=== PATIENT | female | born 1950 | race Two or more races ===

== ENCOUNTER 2024-09-11 22:27 | Inpatient (IN) | payer OTHER ==
[~2024-09-11] VITALS: Ht 149.9 cm; Wt 65.8 kg
[2024-09-11 23:52] VITALS: BP 184/76; TEMP 98.4; O2SAT 95
[2024-09-12] MEDS ORDERED: Z GUARD REMEDY 4 OZ OINT TP PRN (00:30)
[2024-09-12] MEDS ORDERED: MAGNESIUM HYDROXIDE 30 ML UDC PO PRN (00:30)
[2024-09-12] MEDS ORDERED: ONDANSETRON HCL/PF 4 MG/2 ML VIAL IVP PRN (00:30)
[2024-09-12] MEDS ORDERED: MAG HYDROX/AL HYDROX/SIMETH 30 ML UDC PO PRN (00:30)
[2024-09-12] MEDS ORDERED: HYDROCODONE/APAP 5/325MG TABLET PO PRN (01:00)
[2024-09-12] MEDS: AMLODIPINE BESYLATE 5 MG TABLET PO SCH ×2 (01:30→16:09)
[2024-09-12 04:00] VITALS: BP 137/90; TEMP 98.1; O2SAT 95
[2024-09-12 06:52] LABS: BASOPHILS % (AUTO) 0.4 % (0.0-2.0); EOSINOPHILS % (AUTO) 0.2 % (0.0-6.0); HEMATOCRIT 33 % (33-45); HEMOGLOBIN 10.7 g/dL (11.5-14.8); LYMPHOCYTES # (AUTO) 1.2 K/uL (0.8-4.8); LYMPHOCYTES % (AUTO) 11.7 % (20.0-44.0); MEAN CORPUSCULAR HEMOGLOBIN 29 PG (26.0-33.0); MEAN CORPUSCULAR HGB CONC 33 g/dl (31.0-36.0); MEAN CORPUSCULAR VOLUME 90 fL (82-100); MONOCYTES # (AUTO) 0.5 K/uL (0.1-1.30); NEUTROPHILS # (AUTO) 8.6 K/uL (1.8-8.9); NEUTROPHILS % (AUTO) 82.7 % (43.0-81.0); PLATELET COUNT (AUTO) 248 K/uL (150-450); RED BLOOD CELL COUNT(AUTO) 3.64 MIL/uL (4.0-5.2); WHITE BLOOD COUNT (AUTO) 10.4 K/uL (4.3-11.0)
[2024-09-12 07:31] LABS: ALANINE AMINOTRANSFERASE 16 U/L (12-78); ALBUMIN 3.1 g/dL (3.4-5.0); ALKALINE PHOSPHATASE 75 U/L (46-116); ASPARTATE AMINOTRANSFERASE 21 U/L (15-37); BILIRUBIN,TOTAL 0.5 mg/dL (0.2-1.0); CALCIUM, SERUM 8.7 mg/dL (8.5-10.1); CARBON DIOXIDE 24 mmol/L (21-32); CHLORIDE 109 mmol/L (98-107); CREATININE 3.1 mg/dL (0.6-1.3); GLUCOSE 110 mg/dL (74-106); MAGNESIUM 2.7 mg/dL (1.8-2.4); POTASSIUM 4.7 mmol/L (3.5-5.1); SODIUM SERUM 144 mmol/L (136-145); TOTAL PROTEIN, SERUM 7.5 g/dL (6.4-8.2); UREA NITROGEN, BLOOD 58 mg/dL (7-18)
[2024-09-12 08:00] VITALS: BP 166/81; TEMP 98.2; O2SAT 95
[2024-09-12] MEDS: PANTOPRAZOLE 40 MG VIAL IV SCH (08:13)
[2024-09-12] MEDS ORDERED: HEPARIN INFUSION/D5W 500 ML IV PRN (09:00)
[2024-09-12] MEDS: hydrALAZINE HCL 25 MG TABLET PO SCH (09:08)
[2024-09-12 09:48] LABS: PARTIAL THROMBOPLASTIN TIME 26.1 SEC (24.3-34.3); PROTHROMBIN TIME 10.6 SECS (9.2-11.1)
[2024-09-12] MEDS: HEPARIN SODIUM, PORCINE 5000 UNITS/1 ML VIAL IV ONE (09:57)
[2024-09-12] MEDS: HEPARIN SODIUM, PORCINE 1000 UNIT/1 ML VIAL IV ONE (10:48)
[2024-09-12] MEDS: HEPARIN INFUSION/D5W 500 ML IV PRN (11:00)
[2024-09-12 12:00] VITALS: BP 165/71; TEMP 98.8; O2SAT 95
[2024-09-12 16:00] VITALS: BP 129/70; TEMP 98.1; O2SAT 96
[2024-09-12 18:21] LABS: INR 0.98 (0.91-1.10); PARTIAL THROMBOPLASTIN TIME 46.2 SEC (24.3-34.3); PROTHROMBIN TIME 10.4 SECS (9.2-11.1)
[2024-09-12 20:00] VITALS: BP 153/63; TEMP 99.5; O2SAT 94
[2024-09-13] VITALS: BP 157/63; TEMP 98.8; O2SAT 94
[2024-09-13 04:00] VITALS: BP 160/65; TEMP 98.6; O2SAT 95
[2024-09-13 07:31] LABS: BASOPHILS % (AUTO) 0.5 % (0.0-2.0); EOSINOPHILS # (AUTO) 0.1 K/uL (0.0-0.7); EOSINOPHILS % (AUTO) 1.2 % (0.0-6.0); HEMATOCRIT 30 % (33-45); HEMOGLOBIN 9.8 g/dL (11.5-14.8); LYMPHOCYTES # (AUTO) 1.5 K/uL (0.8-4.8); LYMPHOCYTES % (AUTO) 16.8 % (20.0-44.0); MEAN CORPUSCULAR HEMOGLOBIN 29 PG (26.0-33.0); MEAN CORPUSCULAR HGB CONC 33 g/dl (31.0-36.0); MEAN CORPUSCULAR VOLUME 89 fL (82-100); MONOCYTES # (AUTO) 0.5 K/uL (0.1-1.30); MONOCYTES % (AUTO) 5.6 % (2.0-12.0); NEUTROPHILS # (AUTO) 6.7 K/uL (1.8-8.9); NEUTROPHILS % (AUTO) 75.9 % (43.0-81.0); PLATELET COUNT (AUTO) 252 K/uL (150-450); RED BLOOD CELL COUNT(AUTO) 3.37 MIL/uL (4.0-5.2); RED CELL DISTRIBUTION WIDTH 14.3 % (11.5-15.0); WHITE BLOOD COUNT (AUTO) 8.8 K/uL (4.3-11.0)
[2024-09-13 07:39] LABS: ALANINE AMINOTRANSFERASE 17 U/L (12-78); ALBUMIN 2.9 g/dL (3.4-5.0); ALKALINE PHOSPHATASE 69 U/L (46-116); ASPARTATE AMINOTRANSFERASE 22 U/L (15-37); BILIRUBIN,TOTAL 0.5 mg/dL (0.2-1.0); CALCIUM, SERUM 8.4 mg/dL (8.5-10.1); CARBON DIOXIDE 22 mmol/L (21-32); CHLORIDE 105 mmol/L (98-107); CREATININE 3.5 mg/dL (0.6-1.3); GLUCOSE 111 mg/dL (74-106); MAGNESIUM 2.6 mg/dL (1.8-2.4); PHOSPHORUS 5.8 mg/dL (2.5-4.9); POTASSIUM 4.1 mmol/L (3.5-5.1); SODIUM SERUM 140 mmol/L (136-145); TOTAL PROTEIN, SERUM 7.1 g/dL (6.4-8.2); UREA NITROGEN, BLOOD 63 mg/dL (7-18)
[2024-09-13 08:00] VITALS: BP 144/62; TEMP 98.6; O2SAT 96
[2024-09-13 08:05] LABS: CREATINE KINASE, TOTAL 201 U/L (26-192)
[2024-09-13] MEDS: PANTOPRAZOLE 40 MG TABLET.DR PO SCH (09:00)
[2024-09-13 12:00] VITALS: BP 152/67; TEMP 97.7; O2SAT 96
[2024-09-13] MEDS: METOPROLOL TARTRATE 25 MG TABLET PO SCH (15:10)
[2024-09-13 16:00] VITALS: BP 151/61; TEMP 98.2; O2SAT 94
[2024-09-13 18:36] LABS: CREATININE, URINE 114.2 MG/DL (30.0-125.0); URINE TOTAL PROTEIN 105.9 mg/dL (0-11.9)
[2024-09-13 19:33] LABS: INR 0.99 (0.91-1.10); PARTIAL THROMBOPLASTIN TIME 43.6 SEC (24.3-34.3); PROTHROMBIN TIME 10.5 SECS (9.2-11.1)
[2024-09-13 19:41] LABS: APPEARANCE,URINE CLEAR (CLEAR); BILIRUBIN,URINE NEGATIVE (NEGATIVE); BLOOD, URINE NEGATIVE Ery/uL (NEGATIVE); COLOR,URINE YELLOW (YELLOW); KETONES,URINE NEGATIVE (NEGATIVE); LEUKOCYTE ESTERASE ,URINE 3+ (NEGATIVE); NITRITE, URINE NEGATIVE (NEGATIVE); PH,URINE 5.5 (5.0-8.0); PROTEIN,URINE 2+ mg/dl (NEGATIVE); UGLUCOSE NEGATIVE (NEGATIVE); UROBILINOGEN,URINE 0.2 EU/dL (0.2)
[2024-09-13 19:50] LABS: ADD URINE CULTURE YES; BACTERIA,URINE 4+ /HPF (None Seen); RBC,URINE 0-2 /HPF (0-2); WBC,URINE 51-80 /HPF (0-3)
[2024-09-13 20:00] VITALS: BP 165/70; TEMP 98.2; O2SAT 94
[2024-09-13 20:44] LABS: EOSINOPHIL,URINE None Seen
[2024-09-14] VITALS: BP 159/70; TEMP 98; O2SAT 94
[2024-09-14] MEDS: hydrALAZINE HCL IV 20 MG VIAL IV PRN (01:59)
[2024-09-14 02:53] LABS: BASOPHILS # (AUTO) 0.1 K/uL (0.0-0.2); BASOPHILS % (AUTO) 0.7 % (0.0-2.0); EOSINOPHILS # (AUTO) 0.2 K/uL (0.0-0.7); EOSINOPHILS % (AUTO) 2.1 % (0.0-6.0); HEMATOCRIT 29 % (33-45); HEMOGLOBIN 9.6 g/dL (11.5-14.8); LYMPHOCYTES # (AUTO) 1.6 K/uL (0.8-4.8); LYMPHOCYTES % (AUTO) 18.3 % (20.0-44.0); MEAN CORPUSCULAR HEMOGLOBIN 30 PG (26.0-33.0); MEAN CORPUSCULAR HGB CONC 33 g/dl (31.0-36.0); MEAN CORPUSCULAR VOLUME 90 fL (82-100); MONOCYTES # (AUTO) 0.5 K/uL (0.1-1.30); MONOCYTES % (AUTO) 6.1 % (2.0-12.0); NEUTROPHILS # (AUTO) 6.5 K/uL (1.8-8.9); NEUTROPHILS % (AUTO) 72.8 % (43.0-81.0); PLATELET COUNT (AUTO) 256 K/uL (150-450); RED BLOOD CELL COUNT(AUTO) 3.24 MIL/uL (4.0-5.2); RED CELL DISTRIBUTION WIDTH 14.3 % (11.5-15.0); WHITE BLOOD COUNT (AUTO) 8.9 K/uL (4.3-11.0)
[2024-09-14 03:06] LABS: CALCIUM, SERUM 8.1 mg/dL (8.5-10.1); CARBON DIOXIDE 23 mmol/L (21-32); CHLORIDE 106 mmol/L (98-107); CREATININE 3.5 mg/dL (0.6-1.3); GLUCOSE 113 mg/dL (74-106); POTASSIUM 4.3 mmol/L (3.5-5.1); SODIUM SERUM 139 mmol/L (136-145); UREA NITROGEN, BLOOD 70 mg/dL (7-18)
[2024-09-14 03:09] LABS: MAGNESIUM 2.6 mg/dL (1.8-2.4); PHOSPHORUS 6.4 mg/dL (2.5-4.9)
[2024-09-14 03:38] LABS: INR 0.97 (0.91-1.10); PARTIAL THROMBOPLASTIN TIME 46.7 SEC (24.3-34.3); PROTHROMBIN TIME 10.3 SECS (9.2-11.1)
[2024-09-14 04:00] VITALS: BP 154/70; TEMP 98.1; O2SAT 95
[2024-09-14 08:00] VITALS: BP 160/62; TEMP 98.1; O2SAT 95
[2024-09-14 08:06] LABS: PTH, INTACT 161 pg/mL (15-65)
[2024-09-14] MEDS: hydrALAZINE HCL 50 MG TABLET PO SCH (08:16)
[2024-09-14 12:00] VITALS: BP 146/62; TEMP 98.1; O2SAT 96
[2024-09-14 16:00] VITALS: BP 132/59; TEMP 98; O2SAT 98
[2024-09-14 20:00] VITALS: BP 149/62; TEMP 98; O2SAT 98
[2024-09-15] VITALS: BP 158/84; TEMP 98.6; O2SAT 98
[2024-09-15 04:00] VITALS: BP 158/65; TEMP 98.2; O2SAT 95
[2024-09-15 08:00] VITALS: BP 157/68; TEMP 98; O2SAT 94
[2024-09-15] MEDS: ISOSORBIDE MONONITRATE (30MG) 30 MG TAB.SR.24H PO SCH (08:18)
[2024-09-15 08:21] LABS: INR 0.97 (0.91-1.10); PARTIAL THROMBOPLASTIN TIME 26.7 SEC (24.3-34.3); PROTHROMBIN TIME 10.3 SECS (9.2-11.1)
[2024-09-15 08:26] LABS: CALCIUM, SERUM 8.7 mg/dL (8.5-10.1); CARBON DIOXIDE 21 mmol/L (21-32); CHLORIDE 106 mmol/L (98-107); CREATININE 3.8 mg/dL (0.6-1.3); GLUCOSE 94 mg/dL (74-106); POTASSIUM 4.4 mmol/L (3.5-5.1); SODIUM SERUM 140 mmol/L (136-145); UREA NITROGEN, BLOOD 68 mg/dL (7-18)
[2024-09-15 12:00] VITALS: BP 122/73; TEMP 97.7; O2SAT 95
[2024-09-15] MEDS: CARVEDILOL 12.5 MG TABLET PO SCH (13:14)
[2024-09-15 16:00] VITALS: BP 124/61; TEMP 97.6; O2SAT 95
[2024-09-15 20:00] VITALS: BP 128/60; TEMP 97.9; O2SAT 95
[2024-09-16] VITALS (7 sets, daily range): BP systolic 114–147; BP diastolic 50–68; TEMP 97.9–98.6; O2SAT 93–99
[2024-09-16 05:09] LABS: *SPE A/G RATIO 0.8 (0.7-1.7); *SPE ALBUMIN 2.9 g/dL (2.9-4.4); *SPE ALPHA-1-GLOBULIN 0.3 g/dL (0.0-0.4); *SPE ALPHA-2-GLOBULIN 0.9 g/dL (0.4-1.0); *SPE BETA GLOBULIN 1.2 g/dL (0.7-1.3); *SPE GLOBULIN, TOTAL 3.6 g/dL (2.2-3.9); *SPE M-SPIKE Not Observed g/dL (Not Observed); *SPE PROTEIN TOTAL 6.5 g/dL (6.0-8.5); *SPEGAMMA GLOBULIN 1.1 g/dL (0.4-1.8)
[2024-09-16 07:07] LABS: HEPATITIS B SURFACE AB Non Reactive (.)
[2024-09-16 08:09] LABS: COMPLEMENT C3, SERUM 98 mg/dL (82-167); COMPLEMENT C4, SERUM 26 mg/dL (12-38)
[2024-09-16 09:36] LABS: BASOPHILS % (AUTO) 0.6 % (0.0-2.0); EOSINOPHILS # (AUTO) 0.1 K/uL (0.0-0.7); EOSINOPHILS % (AUTO) 1.5 % (0.0-6.0); HEMATOCRIT 28 % (33-45); LYMPHOCYTES # (AUTO) 1.2 K/uL (0.8-4.8); LYMPHOCYTES % (AUTO) 18.3 % (20.0-44.0); MEAN CORPUSCULAR HEMOGLOBIN 29 PG (26.0-33.0); MEAN CORPUSCULAR HGB CONC 33 g/dl (31.0-36.0); MEAN CORPUSCULAR VOLUME 89 fL (82-100); MONOCYTES # (AUTO) 0.5 K/uL (0.1-1.30); NEUTROPHILS # (AUTO) 4.8 K/uL (1.8-8.9); NEUTROPHILS % (AUTO) 71.6 % (43.0-81.0); PLATELET COUNT (AUTO) 283 K/uL (150-450); RED BLOOD CELL COUNT(AUTO) 3.09 MIL/uL (4.0-5.2); RED CELL DISTRIBUTION WIDTH 14.3 % (11.5-15.0); WHITE BLOOD COUNT (AUTO) 6.7 K/uL (4.3-11.0)
[2024-09-16 09:50] LABS: ALANINE AMINOTRANSFERASE 27 U/L (12-78); ALBUMIN 2.7 g/dL (3.4-5.0); ALKALINE PHOSPHATASE 60 U/L (46-116); ASPARTATE AMINOTRANSFERASE 26 U/L (15-37); BILIRUBIN,TOTAL 0.4 mg/dL (0.2-1.0); CALCIUM, SERUM 8.5 mg/dL (8.5-10.1); CARBON DIOXIDE 20 mmol/L (21-32); CHLORIDE 104 mmol/L (98-107); GLUCOSE 151 mg/dL (74-106); MAGNESIUM 2.6 mg/dL (1.8-2.4); PHOSPHORUS 5.6 mg/dL (2.5-4.9); POTASSIUM 4.2 mmol/L (3.5-5.1); SODIUM SERUM 138 mmol/L (136-145); TOTAL PROTEIN, SERUM 6.7 g/dL (6.4-8.2); UREA NITROGEN, BLOOD 80 mg/dL (7-18)
[2024-09-16 13:09] LABS: *ANA ANTI-CENTROMERE B AB <0.2 AI (0.0-0.9); *ANA ANTI-DNA(DS) AB, QN 19 IU/mL (0-9); *ANA ANTI-JO-1 <0.2 AI (0.0-0.9); *ANA ANTICHROMATIN ANTIBODY <0.2 AI (0.0-0.9); *ANA RNP ANTIBODIES <0.2 AI (0.0-0.9); *ANA SJOGREN'S ANTI-SS-A <0.2 AI (0.0-0.9); *ANA SJOGREN'S ANTI-SS-B <0.2 AI (0.0-0.9); *ANAANTI-SCLERODERMA-70 AB <0.2 AI (0.0-0.9); *ANASMITH AB <0.2 AI (0.0-0.9)
[2024-09-17] VITALS: BP 141/61; TEMP 98.1; O2SAT 94
[2024-09-17 04:00] VITALS: BP 148/65; TEMP 98.4; O2SAT 94
[2024-09-17 05:09] LABS: HEPATITIS B CORE AB, IgM Negative (Negative); HEPATITIS B CORE AB, TOTAL Negative (Negative); HEPATITIS B SURFACE AB Non Reactive (.)
[2024-09-17 07:19] LABS: BASOPHILS % (AUTO) 0.6 % (0.0-2.0); EOSINOPHILS # (AUTO) 0.2 K/uL (0.0-0.7); EOSINOPHILS % (AUTO) 2.5 % (0.0-6.0); HEMATOCRIT 29 % (33-45); HEMOGLOBIN 9.3 g/dL (11.5-14.8); LYMPHOCYTES # (AUTO) 1.8 K/uL (0.8-4.8); LYMPHOCYTES % (AUTO) 25.4 % (20.0-44.0); MEAN CORPUSCULAR HEMOGLOBIN 29 PG (26.0-33.0); MEAN CORPUSCULAR HGB CONC 32 g/dl (31.0-36.0); MEAN CORPUSCULAR VOLUME 89 fL (82-100); MONOCYTES # (AUTO) 0.7 K/uL (0.1-1.30); MONOCYTES % (AUTO) 9.2 % (2.0-12.0); NEUTROPHILS # (AUTO) 4.4 K/uL (1.8-8.9); NEUTROPHILS % (AUTO) 62.3 % (43.0-81.0); PLATELET COUNT (AUTO) 299 K/uL (150-450); RED BLOOD CELL COUNT(AUTO) 3.23 MIL/uL (4.0-5.2); RED CELL DISTRIBUTION WIDTH 13.9 % (11.5-15.0); WHITE BLOOD COUNT (AUTO) 7.1 K/uL (4.3-11.0)
[2024-09-17 08:00] VITALS: BP 152/67; TEMP 97.8; O2SAT 96
[2024-09-17 08:07] LABS: ALANINE AMINOTRANSFERASE 43 U/L (12-78); ALBUMIN 2.8 g/dL (3.4-5.0); ALKALINE PHOSPHATASE 62 U/L (46-116); ASPARTATE AMINOTRANSFERASE 46 U/L (15-37); BILIRUBIN,TOTAL 0.3 mg/dL (0.2-1.0); CALCIUM, SERUM 8.5 mg/dL (8.5-10.1); CARBON DIOXIDE 21 mmol/L (21-32); CHLORIDE 105 mmol/L (98-107); CREATININE 4.1 mg/dL (0.6-1.3); GLUCOSE 105 mg/dL (74-106); MAGNESIUM 2.8 mg/dL (1.8-2.4); PHOSPHORUS 5.5 mg/dL (2.5-4.9); POTASSIUM 4.5 mmol/L (3.5-5.1); SODIUM SERUM 139 mmol/L (136-145); TOTAL PROTEIN, SERUM 6.9 g/dL (6.4-8.2)
[2024-09-17 08:20] LABS: UREA NITROGEN, BLOOD 87 mg/dL (7-18)
[2024-09-17] MEDS: CEFTRIAXONE 1 G in IV D5W 50 ML IV SCH (10:11)
[2024-09-17 12:00] VITALS: BP 89/46; TEMP 97.9; O2SAT 96
[2024-09-17 16:00] VITALS: BP 121/58; TEMP 97.9; O2SAT 98
[2024-09-17 20:00] VITALS: BP 144/66; TEMP 97.9; O2SAT 95
[2024-09-18] VITALS: BP 144/65; TEMP 98.1; O2SAT 97
[2024-09-18 04:00] VITALS: BP 142/58; TEMP 98.2; O2SAT 95
[2024-09-18 08:00] VITALS: BP 159/67; TEMP 98.1; O2SAT 97
[2024-09-18] MEDS: hydrALAZINE HCL 50 MG TABLET PO SCH (08:24)
[2024-09-18 12:00] VITALS: BP 119/56; TEMP 98.6; O2SAT 93
[2024-09-18 12:46] LABS: ALANINE AMINOTRANSFERASE 31 U/L (12-78); ALBUMIN 2.5 g/dL (3.4-5.0); ALKALINE PHOSPHATASE 60 U/L (46-116); ASPARTATE AMINOTRANSFERASE 25 U/L (15-37); BILIRUBIN,TOTAL 0.2 mg/dL (0.2-1.0); CALCIUM, SERUM 8.1 mg/dL (8.5-10.1); CARBON DIOXIDE 21 mmol/L (21-32); CHLORIDE 105 mmol/L (98-107); CREATININE 4.2 mg/dL (0.6-1.3); GLUCOSE 114 mg/dL (74-106); POTASSIUM 4.8 mmol/L (3.5-5.1); SODIUM SERUM 139 mmol/L (136-145); TOTAL PROTEIN, SERUM 6.3 g/dL (6.4-8.2)
[2024-09-18 12:56] LABS: UREA NITROGEN, BLOOD 89 mg/dL (7-18)
[2024-09-18 16:00] VITALS: BP 124/54; TEMP 97.7; O2SAT 96
[2024-09-18 20:00] VITALS: BP 118/52; TEMP 97.7; O2SAT 95
[2024-09-19] VITALS: BP 140/60; TEMP 98.4; O2SAT 95
[2024-09-19] MEDS: ACETAMINOPHEN 325 MG TABLET PO PRN (03:17)
[2024-09-19 04:00] VITALS: BP 134/59; TEMP 98.4; O2SAT 95
[2024-09-19 07:07] LABS: ALANINE AMINOTRANSFERASE 26 U/L (12-78); ALBUMIN 2.6 g/dL (3.4-5.0); ALKALINE PHOSPHATASE 65 U/L (46-116); ASPARTATE AMINOTRANSFERASE 19 U/L (15-37); BILIRUBIN,TOTAL 0.3 mg/dL (0.2-1.0); CALCIUM, SERUM 8.5 mg/dL (8.5-10.1); CARBON DIOXIDE 21 mmol/L (21-32); CHLORIDE 103 mmol/L (98-107); CREATININE 4.1 mg/dL (0.6-1.3); GLUCOSE 96 mg/dL (74-106); POTASSIUM 4.8 mmol/L (3.5-5.1); SODIUM SERUM 137 mmol/L (136-145); TOTAL PROTEIN, SERUM 6.5 g/dL (6.4-8.2); UREA NITROGEN, BLOOD 86 mg/dL (7-18)
[2024-09-19 08:00] VITALS: BP 139/60; TEMP 98.4; O2SAT 95
[2024-09-19 12:00] VITALS: BP 100/60; TEMP 98.1; O2SAT 95
[2024-09-19 16:00] VITALS: BP 126/60; TEMP 97.7; O2SAT 95
[2024-09-19 20:00] VITALS: BP 128/62; TEMP 97.9; O2SAT 95
[2024-09-20] VITALS: BP 126/46; TEMP 98.8; O2SAT 95
[2024-09-20 04:00] VITALS: BP 136/51; TEMP 98.2; O2SAT 95
[2024-09-20 08:00] VITALS: BP 123/66; TEMP 98.7; O2SAT 96
[2024-09-20 08:34] LABS: ALANINE AMINOTRANSFERASE 28 U/L (12-78); ALBUMIN 2.7 g/dL (3.4-5.0); ALKALINE PHOSPHATASE 72 U/L (46-116); ASPARTATE AMINOTRANSFERASE 18 U/L (15-37); BILIRUBIN,TOTAL 0.2 mg/dL (0.2-1.0); CALCIUM, SERUM 8.4 mg/dL (8.5-10.1); CARBON DIOXIDE 24 mmol/L (21-32); CHLORIDE 105 mmol/L (98-107); GLUCOSE 99 mg/dL (74-106); POTASSIUM 4.6 mmol/L (3.5-5.1); SODIUM SERUM 139 mmol/L (136-145); TOTAL PROTEIN, SERUM 6.8 g/dL (6.4-8.2)
[2024-09-20 08:47] LABS: UREA NITROGEN, BLOOD 82 mg/dL (7-18)
[2024-09-20] MEDS ORDERED: MIDAZOLAM HCL 2 MG/2ML VIAL IV PRN (13:30)
[2024-09-20] MEDS ORDERED: FENTANYL PF 250MCG/5ML AMPUL IV PRN (13:30)
[2024-09-20] MEDS ORDERED: FLUMAZENIL 0.5 MG VIAL IV PRN (13:30)
[2024-09-20] MEDS ORDERED: NALOXONE PREFILLED SYRINGE 2 MG/2 ML SYRINGE IV PRN (13:30)
[2024-09-20 16:00] VITALS: BP 125/63; TEMP 98.6; O2SAT 94
[2024-09-21] VITALS: BP 104/71; TEMP 98.1; O2SAT 96
[2024-09-21 08:00] VITALS: BP 129/66; TEMP 98; O2SAT 95
[2024-09-21 08:06] LABS: BASOPHILS # (AUTO) 0.1 K/uL (0.0-0.2); BASOPHILS % (AUTO) 1.3 % (0.0-2.0); EOSINOPHILS # (AUTO) 0.2 K/uL (0.0-0.7); EOSINOPHILS % (AUTO) 2.8 % (0.0-6.0); HEMATOCRIT 27 % (33-45); HEMOGLOBIN 9.1 g/dL (11.5-14.8); LYMPHOCYTES # (AUTO) 2.3 K/uL (0.8-4.8); LYMPHOCYTES % (AUTO) 33.6 % (20.0-44.0); MEAN CORPUSCULAR HEMOGLOBIN 30 PG (26.0-33.0); MEAN CORPUSCULAR HGB CONC 33 g/dl (31.0-36.0); MEAN CORPUSCULAR VOLUME 89 fL (82-100); MONOCYTES # (AUTO) 0.6 K/uL (0.1-1.30); MONOCYTES % (AUTO) 8.3 % (2.0-12.0); NEUTROPHILS # (AUTO) 3.7 K/uL (1.8-8.9); PLATELET COUNT (AUTO) 383 K/uL (150-450); RED BLOOD CELL COUNT(AUTO) 3.06 MIL/uL (4.0-5.2); RED CELL DISTRIBUTION WIDTH 14.2 % (11.5-15.0); WHITE BLOOD COUNT (AUTO) 6.9 K/uL (4.3-11.0)
[2024-09-21 08:19] LABS: PHOSPHORUS 5.8 mg/dL (2.5-4.9)
[2024-09-21 08:26] LABS: ALANINE AMINOTRANSFERASE 31 U/L (12-78); ALBUMIN 2.7 g/dL (3.4-5.0); ALKALINE PHOSPHATASE 75 U/L (46-116); ASPARTATE AMINOTRANSFERASE 20 U/L (15-37); BILIRUBIN,TOTAL 0.3 mg/dL (0.2-1.0); CALCIUM, SERUM 8.7 mg/dL (8.5-10.1); CARBON DIOXIDE 23 mmol/L (21-32); CHLORIDE 106 mmol/L (98-107); CREATININE 3.8 mg/dL (0.6-1.3); GLUCOSE 95 mg/dL (74-106); SODIUM SERUM 139 mmol/L (136-145); TOTAL PROTEIN, SERUM 6.8 g/dL (6.4-8.2); UREA NITROGEN, BLOOD 75 mg/dL (7-18)
[2024-09-21] MEDS: IV 1/2NS 1000 ML 1,000 ML IV PRN (15:12)
[2024-09-21 16:00] VITALS: BP 123/55; TEMP 97.9; O2SAT 96
[2024-09-22] VITALS: BP 123/55; TEMP 98.6; O2SAT 94
[2024-09-22 08:00] VITALS: BP 132/53; TEMP 97.8; O2SAT 100
[2024-09-22 08:21] LABS: CALCIUM, SERUM 8.6 mg/dL (8.5-10.1); CARBON DIOXIDE 23 mmol/L (21-32); CHLORIDE 107 mmol/L (98-107); CREATININE 4.2 mg/dL (0.6-1.3); GLUCOSE 98 mg/dL (74-106); POTASSIUM 4.8 mmol/L (3.5-5.1); SODIUM SERUM 140 mmol/L (136-145); UREA NITROGEN, BLOOD 78 mg/dL (7-18)
[2024-09-22 08:26] LABS: ALANINE AMINOTRANSFERASE 25 U/L (12-78); ALBUMIN 2.7 g/dL (3.4-5.0); ALKALINE PHOSPHATASE 74 U/L (46-116); ASPARTATE AMINOTRANSFERASE 14 U/L (15-37); BILIRUBIN,TOTAL 0.2 mg/dL (0.2-1.0); TOTAL PROTEIN, SERUM 6.8 g/dL (6.4-8.2)
[2024-09-22 16:00] VITALS: BP 120/89; TEMP 97.7; O2SAT 99
[2024-09-23] VITALS: BP 124/50; TEMP 98.6; O2SAT 95
[2024-09-23 04:00] VITALS: BP 130/51; TEMP 98.2; O2SAT 95
[2024-09-23 08:00] VITALS: BP 134/43; TEMP 97.9; O2SAT 94
[2024-09-23 08:14] LABS: CALCIUM, SERUM 8.5 mg/dL (8.5-10.1); CARBON DIOXIDE 21 mmol/L (21-32); CHLORIDE 105 mmol/L (98-107); CREATININE 4.2 mg/dL (0.6-1.3); GLUCOSE 94 mg/dL (74-106); POTASSIUM 4.7 mmol/L (3.5-5.1); SODIUM SERUM 137 mmol/L (136-145); UREA NITROGEN, BLOOD 71 mg/dL (7-18)
[2024-09-23 08:20] LABS: ALANINE AMINOTRANSFERASE 22 U/L (12-78); ALBUMIN 2.8 g/dL (3.4-5.0); ALKALINE PHOSPHATASE 75 U/L (46-116); ASPARTATE AMINOTRANSFERASE 16 U/L (15-37); BILIRUBIN,TOTAL 0.3 mg/dL (0.2-1.0); TOTAL PROTEIN, SERUM 6.6 g/dL (6.4-8.2)
[2024-09-23 16:00] VITALS: BP 120/48; TEMP 98.2; O2SAT 99
[2024-09-23] MEDS: IV 1/2NS 1000 ML 1,000 ML IV PRN (22:55)
[2024-09-24] VITALS: BP 112/52; TEMP 97.9; O2SAT 95
[2024-09-24 04:20] VITALS: BP 145/58; TEMP 98.6; O2SAT 96
[2024-09-24 07:07] LABS: ALANINE AMINOTRANSFERASE 16 U/L (12-78); ALBUMIN 2.7 g/dL (3.4-5.0); ALKALINE PHOSPHATASE 81 U/L (46-116); ASPARTATE AMINOTRANSFERASE 15 U/L (15-37); BILIRUBIN,TOTAL 0.3 mg/dL (0.2-1.0); CALCIUM, SERUM 8.3 mg/dL (8.5-10.1); CARBON DIOXIDE 22 mmol/L (21-32); CHLORIDE 106 mmol/L (98-107); CREATININE 3.9 mg/dL (0.6-1.3); GLUCOSE 92 mg/dL (74-106); POTASSIUM 4.6 mmol/L (3.5-5.1); SODIUM SERUM 139 mmol/L (136-145); TOTAL PROTEIN, SERUM 6.5 g/dL (6.4-8.2); UREA NITROGEN, BLOOD 66 mg/dL (7-18)
[2024-09-24 08:00] VITALS: BP_SYST 143; BP_SYST 144; BP_DIAS 53; BP_DIAS 60; TEMP 98.1; O2SAT 95; O2SAT 96
[2024-09-24 08:17] VITALS: BP 144/60
[2024-09-24] MEDS ORDERED: AMLO-212 PO (10:50)
[2024-09-24] MEDS ORDERED: ISOS30TA86 PO (10:50)
[2024-09-24] MEDS ORDERED: HYDR-4077 PO (10:50)
[2024-09-24] MEDS ORDERED: CARV12.52 PO (10:50)
[2024-09-24] MEDS ORDERED: PANT40TA49 PO (10:50)
== END 2024-09-24 14:30 | DRG 199 ==
LOC: TELE1 23:43 → MEDSG1 09-20 09:43 → UNDODISIN 09-24 11:20
PROVIDERS: ADMIT Nurse Practitioner Acute Care; ATTEND Nurse Practitioner Acute Care
PROC: 0TB03ZX Excision of Right Kidney, Percutaneous Approach, Diagnostic (ICD-10-PCS; principal; 2024-09-20)
DX: I16.0 Hypertensive urgency (principal); N17.0 Acute kidney failure with tubular necrosis; I21.A1 Myocardial infarction type 2; S32.591A Other specified fracture of right pubis, initial encounter for closed fracture; E44.0 Moderate protein-calorie malnutrition; E88.09 Other disorders of plasma-protein metabolism, not elsewhere classified; E83.41 Hypermagnesemia; E87.20 Acidosis, unspecified; I12.9 Hypertensive chronic kidney disease with stage 1 through stage 4 chronic kidney disease, or unspecified chronic kidney disease; N18.9 Chronic kidney disease, unspecified; W10.9XXA Fall (on) (from) unspecified stairs and steps, initial encounter; Y92.9 Unspecified place or not applicable; D64.9 Anemia, unspecified; I35.0 Nonrheumatic aortic (valve) stenosis; M85.80 Other specified disorders of bone density and structure, unspecified site; M89.8X9 Other specified disorders of bone, unspecified site; I25.10 Atherosclerotic heart disease of native coronary artery without angina pectoris; E86.9 Volume depletion, unspecified; N39.0 Urinary tract infection, site not specified
CPT/HCPCS: 36415; 76770-TC; 80048-TC; 80053-TC; 81001; 82550-TC; 82570-TC; 83735-TC; 83970; 84100-TC; 84155; 84165; 84300-TC; 84484-TC; 85025-TC; 85610-TC; 85652-TC; 85730-TC; 86225; 86235; 86704; 86705; 86706; 86803; 87086-TC; 87340; 93307-TC; 97110-TC; 97116-TC; 97530-TC; 97535-TC; A4223; G0378; J0360; J0696; J1644; J2250; J2470; J3010; J3490; J7050; J7060